=== PATIENT | female | born 1940 | race Caucasian/White ===

== ENCOUNTER 2021-10-01 10:21 | Outpatient (REF) | payer OTHER, SELFPAY ==
--- NOTE | ~2021-10-01 | XR_ITS ---
EXAMINATION: XR THORACIC SPINE XR LUMBAR SPINE CLINICAL INFORMATION: Cerebellar ataxia. COMPARISON: None TECHNIQUE: AP and lateral views of the thoracic spine. AP, lateral, and coned-down views of the lumbar spine. FINDINGS: Thoracic spine: Dextrocurvature of the thoracic spine. The thoracic kyphosis is maintained. Mild loss of superior vertebral body endplate height at T12, which could indicate a minimal age-indeterminate compression deformity. No additional loss of vertebral body height. Mild multilevel loss of intervertebral disc height with tiny endplate osteophytes. Right-sided central venous catheter with the tip in the region of the SVC. The visualized lungs are clear. Lumbar spine: Mild levocurvature of the lumbar spine. The lumbar lordosis is maintained. Grade 1 anterolisthesis of L5 on S1 with prominent bilateral facet arthropathy. Small multilevel anterior endplate osteophytes. Moderate stool burden. Right upper quadrant surgical clips and left upper quadrant surgical sutures. XR/XR thoracic spine 2V IMPRESSION: Thoracic spine: Dextrocurvature of the thoracic spine. Mild loss of superior vertebral body height at T12, which could indicate a minimal age-indeterminate compression deformity. Mild multilevel degenerative disc disease. Lumbar spine: Mild levocurvature of the lumbar spine. Grade 1 anterolisthesis of L5 on S1 with prominent bilateral facet arthropathy. Mild multilevel degenerative disc disease. Moderate stool burden.
--- NOTE | ~2021-10-01 | XR_ITS ---
EXAMINATION: XR PELVIS CLINICAL INFORMATION: Ataxia COMPARISON: None TECHNIQUE: AP view of the pelvis. FINDINGS: Osteopenia. Diminutive size of the left femoral neck in relation to the right. Chronic appearing deformity of the left femoral head. Mild degenerative changes of both hips with subchondral sclerosis. The pelvic rim is intact. The sacroiliac joints and pubic symphysis are intact. Normal bowel gas pattern. XR/XR pelvis 1-2V IMPRESSION: Osteopenia. Chronic appearing deformity of the left femoral head and neck.
--- NOTE | ~2021-10-01 | XR_ITS ---
EXAMINATION: XR THORACIC SPINE XR LUMBAR SPINE CLINICAL INFORMATION: Cerebellar ataxia. COMPARISON: None TECHNIQUE: AP and lateral views of the thoracic spine. AP, lateral, and coned-down views of the lumbar spine. FINDINGS: Thoracic spine: Dextrocurvature of the thoracic spine. The thoracic kyphosis is maintained. Mild loss of superior vertebral body endplate height at T12, which could indicate a minimal age-indeterminate compression deformity. No additional loss of vertebral body height. Mild multilevel loss of intervertebral disc height with tiny endplate osteophytes. Right-sided central venous catheter with the tip in the region of the SVC. The visualized lungs are clear. Lumbar spine: Mild levocurvature of the lumbar spine. The lumbar lordosis is maintained. Grade 1 anterolisthesis of L5 on S1 with prominent bilateral facet arthropathy. Small multilevel anterior endplate osteophytes. Moderate stool burden. Right upper quadrant surgical clips and left upper quadrant surgical sutures. XR/XR lumbar spine 2-3V IMPRESSION: Thoracic spine: Dextrocurvature of the thoracic spine. Mild loss of superior vertebral body height at T12, which could indicate a minimal age-indeterminate compression deformity. Mild multilevel degenerative disc disease. Lumbar spine: Mild levocurvature of the lumbar spine. Grade 1 anterolisthesis of L5 on S1 with prominent bilateral facet arthropathy. Mild multilevel degenerative disc disease. Moderate stool burden.
== END 2021-10-01 10:22 | disposition home or self-care (01) ==
LOC: HO.XRAY 10:21
PROVIDERS: Visit Provider Psychiatry & Neurology Neurology
DX: G11.9 Hereditary ataxia, unspecified (principal)
CPT/HCPCS: 72070; 72100; 72170